=== PATIENT | female | born 2000 | race Caucasian/White ===

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

== ENCOUNTER 2021-10-17 19:58 | Emergency (ER) | payer BC ==
[2021-10-17 23:16] VITALS: BP 110/72; PULSE 78
== END 2021-10-17 23:15 | disposition home or self-care (01) ==
LOC: MW.ED 19:58
DX: R51.9 Headache, unspecified (principal)
CPT/HCPCS: 70450; 70450-26; 99283; 99284

== ENCOUNTER 2024-04-30 00:07 | Emergency (ER) | payer SELFPAY ==
[2024-04-30 00:57] LABS: APPEARANCE,URINE SLT CLOUDY; BILIRUBIN,URINE NEGATIVE (NEGATIVE); COLOR,URINE YELLOW; GLUCOSE,URINE NEGATIVE (NEGATIVE); KETONES,URINE 40 mg/dL (NEGATIVE); LEUKOCYTE ESTERASE,URINE SMALL (NEGATIVE); NITRITE,URINE NEGATIVE (NEGATIVE); OCCULT BLOOD,URINE TRACE-INTACT (NEGATIVE); PH,URINE 5.5 (5.0-8.0); PROTEIN,URINE TRACE mg/dL (NEGATIVE); UROBILINOGEN,URINE 0.2 EU/dL (<2.0)
[2024-04-30 01:04] LABS: BACTERIA,URINE 3+ (NEGATIVE); EPITHELIAL CELLS,URINE MODERATE (NONE-FEW); MUCUS,URINE FEW (NONE-MOD); RBC,URINE 0-2 (0-2/HPF)
[2024-04-30 01:24] VITALS: BP 116/68; PULSE 86
== END 2024-04-30 01:23 | disposition home or self-care (01) ==
LOC: MW.ED 00:07
DX: N30.00 Acute cystitis without hematuria (principal)
CPT/HCPCS: 81001; 81025; 82947; 87086; 93005; 99285